=== PATIENT | male | born 1960 | race Caucasian/White ===

== ENCOUNTER 2018-05-09 17:36 | Emergency (ER) | payer OTHER, MEDICAID ==
[~2018-05-09] VITALS: Ht 167.6 cm; Wt 88.7 kg
[~2018-05-09 17:36] MED LIST: ENOX40DI14 SC; GABA300C16 PO; HYDR-906 PO; INSU100I13 SQ; LACT20SO2 PO; LANT3I SC; METO-448 PO; PANT40TA3 PO
[2018-05-09 17:47] VITALS: Ht 167.6 cm; Wt 88.7 kg
[2018-05-09] MEDS ORDERED: CLOT30CR24 TOP (20:52)
[2018-05-09] MEDS ORDERED: FLUC150T PO (20:52)
--- NOTE | 2018-05-09 20:54 | ERD ---
ER Documentation Chief Complaint Chief Complaint x 2 mo of penile swelling and x 2 days of R ear tinnitus HPI 58-year-old male with a history of hypertension and diabetes presenting with co mplaints of penile pain and discharge from his penis for the past 2 months. He said his primary care doctor about this but states that his primary care doctor told him he could not do anything due to his diabetes. He does have associated mild dysuria. Patient is unable to retract his foreskin for the past 2 months as well. He also complains of right ear ringing that has been present for the past 2 days. He has had a recent URI. No fevers or chills. No headache, focal weakness or numbness. No vision disturbance. ROS All systems reviewed and are negative except as per history of present illness. Medications Home Meds Active Scripts Fluconazole* (Diflucan*) 150 Mg Tablet, 150 MG PO ONCE, #2 TAB take one today. Then take another tablet in 3 days. Prov:DAVID MIMS MD 05/09/18 Clotrimazole* (Clotrimazole* AF) 1% - 30 Gm Cream.gm., 1 APPLIC TOP BID for 14 Days, #1 TUB Prov:DAVID MIMS MD 05/09/18 Reported Medications Hydrocodone Bit-Acetaminophen ([place]) 1 Tab Tablet, 2 TAB PO Q4H PRN for SEVERE PAIN LEVEL 7-10, TAB 10/06/13 Hydrocodone Bit-Acetaminophen ([place]) 1 Tab Tablet, 1 TAB PO Q4H PRN for MODERATE PAIN LEVEL 4-6, TAB 10/06/13 Lactulose* (Lactulose*) 20 Gm/30 Ml Solution, 20 GM PO DAILY PRN for CONSTIPATION, ML 10/06/13 Enoxaparin Sodium* (Lovenox*) 40 Mg/0.4 Ml Syringe, 40 MG SC BID, SYR 10/06/13 Gabapentin* (Gabapentin*) 300 Mg Capsule, 300 MG PO TID, CAP 10/06/13 Metoprolol Tartrate* (Lopressor*) 25 Mg Tab, 25 MG PO BID, TAB 10/06/13 Insulin Glargine* (Lantus*) 100 Unit/Ml Soln, 34 UNIT SC DAILY, EA 10/05/13 Pantoprazole* (Protonix*) 40 Mg Tablet.dr, 40 MG PO DAILY 05/19/13 Insulin Aspart (Novolog) 100 U/Ml Insuln.pen, 0 SQ AC BREAKFAST BEDTIME PRN for ELEVATED GLUCOSE 05/04/13 Allergies Allergies: Coded Allergies: No Known Allergy (Unverified , 05/04/13) PMhx/Soc History of Surgery: Yes (pancreatic tumor removal 2013) Anesthesia Reaction: No Hx Neurological Disorder: No Hx Respiratory Disorders: No Hx Cardiac Disorders: Yes (hypertension) Hx Psychiatric Problems: No Hx Miscellaneous Medical Probl: Yes (hernia repair,hemorrhoidectomy; DM) Hx Alcohol Use: Yes Hx Substance Use: No Hx Tobacco Use: Yes Smoking Status: Current every day smoker FmHx Family History: diabetes Physical Exam Vitals Vital Signs Date Temp Pulse Resp B/P (MAP) Pulse Ox O2 O2 Flow FiO2 Time Delivery Rate 05/09/18 98.9 87 16 144/68 95 Room Air 21:06 (93) 05/09/18 99.9 65 18 147/68 93 17:47 (94) Physical Exam Const: No acute distress Head: Atraumatic Eyes: Normal Conjunctiva, PERRLA, EOMI, no nystagmus ENT: Normal External Ears, Nose and Mouth. TMs clear bilaterally. Neck: Full range of motion. No meningismus. Resp: Clear to auscultation bilaterally Cardio: Regular rate and rhythm, no murmurs Abd: Soft, non tender, non distended. Normal bowel sounds : Inflammation at the tip of the penis and foreskin with erythema and milky discharge. Unable to retract foreskin Skin: No petechiae or rashes Back: No midline or flank tenderness Ext: No cyanosis, or edema Neur: Awake and alert, cranial nerves intact, strength and sensations intact in all 4 extremities. Normal gait. Normal balance. Psych: Normal Mood and Affect Results 24 hrs Laboratory Tests Test 05/09/18 20:39 Bedside Glucose 252 mg/dL [facility] Patient symptoms and exam are most consistent with balanitis. I have a lower suspicion for CVA or UTI. Recommended treatment with topical and oral antifungals as well as blood sugar control. With regard to this tenderness, I suspect he may be suffering from acute labyrinthitis. However given his uncontrolled diabetes, I would not treat with prednisone. I have a low suspicion for stroke or intracranial tumor. Follow-up with urologist Dr. Grey advised. I also recommended follow-up with PCP for better blood sugar control. Departure Diagnosis: Primary Impression: Balanitis Condition: Stable Patient Instructions: Balanitis Referrals: ARAVIND GREY MD, NELLIE R. MD May 09, 2018 20:54
[2018-05-09 21:06] VITALS: BP 144/68; PULSE 87; RESP 16
== END 2018-05-09 21:07 | disposition home or self-care (01) ==
LOC: E/R 17:36
DX: N48.1 Balanitis (principal); I10 Essential (primary) hypertension; E11.9 Type 2 diabetes mellitus without complications; F17.210 Nicotine dependence, cigarettes, uncomplicated; Z79.4 Long term (current) use of insulin
CPT/HCPCS: 82962; 99283